=== PATIENT | female | born 1960 | race Caucasian/White ===

== ENCOUNTER 2016-06-17 08:52 | Outpatient (CLI) | payer BC ==
--- NOTE | 2016-06-18 17:24 | Mammography Report ---
DIGITAL SCREENING MAMMOGRAM: 06/17/2016 CLINICAL INDICATION: A 55-year-old with history of benign right breast biopsy for screening. COMPARISON: 06/2015, 06/2014, 05/2013, 07/2011, 12/2009, 11/2008, 09/2007, 08/2006 TECHNIQUE: Routine CC and MLO projections were obtained of the breasts. FINDINGS: Parenchymal tissue within the breasts is predominantly fatty replaced. There are no domina nt masses, suspicious microcalcifications, or secondary signs of malignancy. In comparison to the pre vious studies, there are no significant changes. IMPRESSION: NO MAMMOGRAPHIC EVIDENCE OF MALIGNANCY. NO SIGNIFICANT INTERVAL CHANGES. RECOMMENDATION: Screening mammography is recommended annually. BIRADS category 1 - negative. STANDARD QUALIFYING STATEMENTS 1. This examination was reviewed with the aid of Computed-Aided Detection (CAD). 2. A negative or benign imaging report should not delay biopsy if clinically suspicious findings are present. Consider surgical consultation if warranted. More than 5% of cancers are not identified by i maging. 3. Dense breasts may obscure an underlying neoplasm. JOB #: [id number] EXT JOB #:[id number]
== END 2016-06-17 08:53 | disposition home or self-care (01) ==
LOC: DI 08:52
PROVIDERS: ATTEND Physician Assistant Medical
DX: Z12.31 Encounter for screening mammogram for malignant neoplasm of breast (principal)
CPT/HCPCS: 77067

== ENCOUNTER 2016-06-17 08:56 | Outpatient (CLI) | payer BC ==
--- NOTE | 2016-06-17 15:02 | DEXA Report ---
DEXA SCAN: 06/17/2016 CLINICAL INDICATION: Osteoporosis, long-term prednisone use, postmenopausal. TECHNIQUE: Dual energy x-ray absorptiometry (DXA) was performed on a [employer] system. Regions measured are the AP spine, femoral neck, and, if needed, forearm. COMPARISON: None. In accordance with the International Society for Clinical Densitometry (ISCD) guidelines, data from previous exams may be reanalyzed using current recommendations and techniques. This is done to allow a more accurate basis for comparison with the current study. FINDINGS: The data for the lumbar spine is as follows: REGION BMD (g/cm/cm) T-SCORE Z-SCORE L1 0.944 -1.5 -1.8 L2 0.879 -2.7 -2.9 L3 1.070 -1.1 -1.3 L4 1.022 -1.5 -1.7 TOTAL 0.984 -1.6 -1.9 NOTE: All evaluable vertebrae are used for classification. The data for the hip is as follows: REGION BMD (g/cm/cm) T-SCORE Z-SCORE Neck 0.856 -1.3 -0.9 TOTAL 0.907 -0.8 -0.9 NOTE: The femoral neck or total proximal femur, whichever is lowest, is used for classification. * Denotes significant change at the 95% confidence level. Denotes dissimilar scan types or analysis methods. IMPRESSION: THE WHO CLASSIFICATION BASED ON THE INTERNATIONAL REFERENCE STANDARD IS OSTEOPENIA. THE FRACTURE RISK IS INCREASED. RECOMMENDATION: Patients with diagnosis of osteoporosis or osteopenia should have regular bone mineral density assessment. For those eligible for Medicare, routine testing is allowed once every 2 years. Testing frequency can be increased for patients who have rapidly progressing disease or for those who are receiving medical therapy to restore bone mass. COMMENT: World Health Organization (WHO) definitions for osteoporosis and osteopenia: NORMAL BMD: T-score at -1.0 or higher, fracture risk is low. OSTEOPENIA BMD: T-score between -1.0 and -2.5, fracture risk is increased. OSTEOPOROSIS BMD: T-score at -2.5 or lower, fracture risk high. National Osteoporosis Foundation recommends: 1. Obtain adequate dietary calcium (at least 1200 mg per day) and vitamin D (400 -800 international units per day). 2. Participate, as appropriate, in regular weightbearing and muscle- strengthening exercise. 3. Avoid tobacco use and reduce alcohol and caffeine intake. 4. For more detailed information see the website at www.NOF.org. MTDD
== END 2016-06-17 08:57 | disposition home or self-care (01) ==
LOC: DI 08:56
PROVIDERS: ATTEND Physician Assistant Medical
DX: M85.89 Other specified disorders of bone density and structure, multiple sites (principal)
CPT/HCPCS: 77080

== ENCOUNTER 2016-06-28 08:00 | Outpatient (CLI) | payer BC | END 2016-06-28 08:01 | disposition home or self-care (01) | DX: Z51.81 Encounter for therapeutic drug level monitoring (principal); E78.9 Disorder of lipoprotein metabolism, unspecified; M81.0 Age-related osteoporosis without current pathological fracture; E55.9 Vitamin D deficiency, unspecified ==

== ENCOUNTER 2016-08-17 08:00 | Outpatient (CLI) | payer BC | END 2016-08-17 08:01 | disposition home or self-care (01) | DX: R19.7 Diarrhea, unspecified (principal) ==

== ENCOUNTER 2017-01-05 15:09 | Outpatient (CLI) | payer BC ==
[2017-01-05 12:58] LABS: HEMOGLOBIN A1C 0.54 g/dL
[2017-01-05 13:04] LABS: CHOL/HDL RATIO 4.5 (<4.4); CHOLESTEROL 184 mg/dL; GLUCOSE,FASTING 108 mg/dL (70-100); HDL CHOLESTEROL 41 mg/dL; LDL/HDL RATIO 2.9 (<4.4); TRIGLYCERIDES 123 mg/dL; VLDL CHOLESTEROL 25 mg/dL
== END 2017-01-05 15:10 | disposition home or self-care (01) ==
LOC: LAB.WCP 15:09
PROVIDERS: ATTEND Physician Assistant Medical
DX: E78.9 Disorder of lipoprotein metabolism, unspecified (principal); R73.9 Hyperglycemia, unspecified
CPT/HCPCS: 36415; 80061; 82947; 83036

== ENCOUNTER 2017-04-25 09:10 | Outpatient (CLI) | payer OTHER ==
[2017-04-25 12:52] LABS: BASOPHILS % (AUTO) 0.6 %; EOSINOPHILS # (AUTO) 0.1 10^3/uL (0.0-0.7); EOSINOPHILS % (AUTO) 1.9 %; HGB - HEMOGLOBIN 12.8 g/dL (12.0-16.0); LYMPHOCYTES # (AUTO) 1.6 10^3/uL (1.5-3.5); LYMPHOCYTES % (AUTO) 28.3 %; MEAN CORPUSCULAR HEMOGLOBIN 28.8 pg (27.0-31.0); MEAN CORPUSCULAR HGB CONC 33.9 g/dL (32.0-36.0); MEAN CORPUSCULAR VOLUME 85.1 fL (81.0-99.0); MEAN PLATELET VOLUME 8.8 fL (7.9-10.8); MONOCYTES # (AUTO) 0.3 10^3/uL (0.0-1.0); MONOCYTES % (AUTO) 4.9 %; NEUTROPHILS # (AUTO) 3.6 10^3/uL (1.5-6.6); NEUTROPHILS % (AUTO) 64.3 %; PLT - PLATELET COUNT 188 10^3/uL (130-450); RED BLOOD COUNT 4.44 10^6/uL (4.20-5.40); WHITE BLOOD COUNT 5.6 x10^3/uL (4.8-10.8)
[2017-04-25 13:22] LABS: HB2 TOTAL 13.7 g/dL; HEMOGLOBIN A1C 0.45 g/dL; HEMOGLOBIN A1C % 5.2 % (4.6-6.2)
[2017-04-25 13:47] LABS: ALBUMIN 4.3 g/dL (3.2-5.5); ALBUMIN/GLOBULIN RATIO 1.5 (1.0-2.2); ALKALINE PHOSPHATASE 42 IU/L (42-121); ALT ALANINE AMINOTRANSFERASE 25 IU/L (10-60); AST ASPARTATE AMINOTRANSFERASE 24 IU/L (10-42); BILIRUBIN,TOTAL 0.5 mg/dL (0.2-1.0); BUN - BLOOD UREA NITROGEN 14 mg/dL (6-20); CALCIUM 9.3 mg/dL (8.5-10.3); CARBON DIOXIDE - CO2 28 mmol/L (21-32); CHLORIDE 104 mmol/L (101-111); CHOL/HDL RATIO 4.6 (<4.4); CHOLESTEROL 181 mg/dL; CREATININE 0.9 mg/dL (0.4-1.0); GFR - MDRD 65 (>89); GLUCOSE 98 mg/dL (70-100); HDL CHOLESTEROL 39 mg/dL; LDL CHOLESTEROL,CALCULATED 108 mg/dL; LDL/HDL RATIO 2.8 (<4.4); SODIUM 140 mmol/L (135-145); TOTAL PROTEIN 7.1 g/dL (6.7-8.2); VLDL CHOLESTEROL 34 mg/dL
== END 2017-04-25 09:11 | disposition home or self-care (01) ==
LOC: LAB.WCP 09:10
PROVIDERS: ATTEND Family Medicine
DX: R73.9 Hyperglycemia, unspecified (principal); E78.9 Disorder of lipoprotein metabolism, unspecified; M81.0 Age-related osteoporosis without current pathological fracture; I10 Essential (primary) hypertension
CPT/HCPCS: 36415; 80053; 80061; 83036; 83721; 85025

== ENCOUNTER 2017-06-28 08:00 | Outpatient (CLI) | payer OTHER ==
[2017-06-28 19:33] LABS: ALBUMIN 4.3 g/dL (3.2-5.5); ALBUMIN/GLOBULIN RATIO 1.3 (1.0-2.2); ALKALINE PHOSPHATASE 40 IU/L (42-121); ALT ALANINE AMINOTRANSFERASE 28 IU/L (10-60); AST ASPARTATE AMINOTRANSFERASE 28 IU/L (10-42); BILIRUBIN,TOTAL 0.8 mg/dL (0.2-1.0); BUN - BLOOD UREA NITROGEN 12 mg/dL (6-20); CALCIUM 9.1 mg/dL (8.5-10.3); CARBON DIOXIDE - CO2 29 mmol/L (21-32); CHLORIDE 102 mmol/L (101-111); CHOL/HDL RATIO 4.5 (<4.4); CHOLESTEROL 194 mg/dL; CREATININE 0.9 mg/dL (0.4-1.0); GFR - MDRD 65 (>89); GLUCOSE 89 mg/dL (70-100); HDL CHOLESTEROL 43 mg/dL; LDL CHOLESTEROL,CALCULATED 125 mg/dL; LDL/HDL RATIO 2.9 (<4.4); SODIUM 139 mmol/L (135-145); TOTAL PROTEIN 7.6 g/dL (6.7-8.2); VLDL CHOLESTEROL 26 mg/dL
[2017-06-28 20:16] LABS: HEMOGLOBIN A1C 0.51 g/dL; HEMOGLOBIN A1C % 5.5 % (4.6-6.2)
== END 2017-06-28 08:01 | disposition home or self-care (01) ==
LOC: LAB.WCP 08:00
PROVIDERS: ATTEND Family Medicine
DX: Z00.00 Encounter for general adult medical examination without abnormal findings (principal); I10 Essential (primary) hypertension; E78.5 Hyperlipidemia, unspecified; R73.9 Hyperglycemia, unspecified
CPT/HCPCS: 36415; 80053; 80061; 83036; 83721; 84443

== ENCOUNTER 2018-01-20 10:31 | Outpatient (CLI) | payer OTHER ==
--- NOTE | 2018-01-24 09:08 | Mammography Report ---
Reason: SCREENING MAMMO Procedure Date: 01/20/2018 Accession Number: [id number] / [id number] Procedure: MGN - Screening Mammo Dig Bilat CPT Code: FULL RESULT: EXAM: Screening Mammo Dig Bilat DATE: 01/20/2018 10:49 AM CLINICAL HISTORY: Screening. Family history breast cancer in a maternal aunt, age unknown. History of benign excisional biopsy right breast at age 19. TECHNIQUE: Bilateral CC and MLO views were obtained. COMPARISON: 06/17/2016 through 05/25/2013 FINDINGS: The breasts demonstrate diffuse fatty replacement bilaterally. Bilateral breasts: There are no suspicious masses, calcifications or areas of distortion. IMPRESSION: Negative examination RECOMMENDATION: Routine annual screening unless otherwise clinically indicated. BI-RADS CATEGORY 1: Negative STANDARD QUALIFYING STATEMENTS: 1. This examination was reviewed with the aid of Computer-Aided Detection (CAD). 2. A negative or benign imaging report should not preclude biopsy if clinically suspicious findings are present. 3. Dense breasts may obscure an underlying neoplasm. 4. This examination was reviewed without the aid of 3D breast imaging (tomosynthesis).
== END 2018-01-20 10:32 | disposition home or self-care (01) ==
LOC: DI.N 10:31
DX: Z12.31 Encounter for screening mammogram for malignant neoplasm of breast (principal); Z80.3 Family history of malignant neoplasm of breast
CPT/HCPCS: 77067

== ENCOUNTER 2018-07-13 16:02 | Outpatient (CLI) | payer OTHER ==
--- NOTE | 2018-07-14 06:49 | XRAY Report ---
Reason: PAIN OF STERNUM Procedure Date: 07/13/2018 Accession Number: [id number] / [id number] Procedure: WCP - Chest 1 View X-Ray CPT Code: 25966 FULL RESULT: EXAM: CHEST RADIOGRAPHY EXAM DATE: 07/13/2018 04:17 PM. CLINICAL HISTORY: PAIN OF STERNUM. COMPARISON: None. TECHNIQUE: 1 view. FINDINGS: Lungs/Pleura: Large lung volumes. No alveolar consolidation or pleural effusion seen. No pneumothorax. Mediastinum: Within exam limitations, the cardiomediastinal contour is normal. Other: Old right fifth rib fracture. Surgical clips project over the right apex. IMPRESSION: 1. No acute abnormality seen in the chest. RADIA
== END 2018-07-13 16:03 | disposition home or self-care (01) ==
LOC: DI.WCP 16:02
PROVIDERS: ATTEND Family Medicine
DX: R07.89 Other chest pain (principal)
CPT/HCPCS: 71045

== ENCOUNTER 2018-07-13 16:03 | Outpatient (CLI) | payer OTHER ==
--- NOTE | 2018-07-14 10:40 | XRAY Report ---
Reason: ANKLE PAIN,RIGHT Procedure Date: 07/13/2018 Accession Number: [id number] / [id number] Procedure: WCP - Ankle 3 View RT CPT Code: FULL RESULT: EXAM: RIGHT ANKLE RADIOGRAPHY EXAM DATE: 07/13/2018 04:17 PM. CLINICAL HISTORY: Ankle pain, right. COMPARISON: XR ANKLE COMPLETE MIN 3 VIEW 12/16/2007 5:32 PM. TECHNIQUE: 3 views. FINDINGS: Bones: Interval placement of plate and screw construct along the lateral distal fibula, medial distal tibia and posterior distal tibia most consistent with interval fracture and subsequent operative repair of a trimalleolar fracture pattern. No fracture lines are seen in the distal fibula. Portions of the fracture pattern in the distal tibia are visualized but appear to be well covered by osseous bridging. Inferior calcaneal spurring is noted. A well-demarcated lucency without aggressive features in the calcaneus is nonspecific but often associated with intraosseous lipoma in this location. Joints: The ankle mortise remains symmetric. Soft Tissues: Normal. No soft tissue swelling. IMPRESSION: Interval fracture, operative repair and healing of trimalleolar fracture pattern. RADIA
== END 2018-07-13 16:04 | disposition home or self-care (01) ==
LOC: DI.WCP 16:03
PROVIDERS: ATTEND Family Medicine
DX: S82.851D Displaced trimalleolar fracture of right lower leg, subsequent encounter for closed fracture with routine healing (principal); R07.89 Other chest pain
CPT/HCPCS: 71045

== ENCOUNTER 2018-07-20 13:08 | Outpatient (CLI) | payer OTHER ==
--- NOTE | 2018-07-20 13:58 | CT Report ---
Reason: HEADACHE,CONCUSSION WO LOSS OF CONSCIOUSNESS Procedure Date: 07/20/2018 Accession Number: [id number] / [id number] Procedure: CT - HEAD WO CPT Code: FULL RESULT: EXAM: CT HEAD EXAM DATE: 07/20/2018 01:42 PM. CLINICAL HISTORY: HEADACHE,CONCUSSION WO LOSS OF CONSCIOUSNESS. COMPARISON: None. TECHNIQUE: Multiaxial CT images were obtained from the foramen magnum to the vertex. Reformats: Sagittal and coronal. IV contrast: None. In accordance with CT protocol optimization, one or more of the following dose reduction techniques were utilized for this exam: automated exposure control, adjustment of mA and/or KV based on patient size, or use of iterative reconstructive technique. FINDINGS: Parenchyma: No intraparenchymal hemorrhage. No evidence of mass, midline shift, or CT findings of infarction. Pina-white differentiation is distinct. Extraaxial Spaces: Normal for age. No subdural or epidural collections identified. Ventricles: Normal in size and position. Sinuses and Orbits: Partial imaging of the maxillary sinuses reveals a left maxillary fluid level versus posterior mucosal thickening. Bones: No evidence of fracture or calvarial defect. Other: None. IMPRESSION: 1. Left maxillary sinus findings discussed above. 2. Otherwise negative examination. No acute abnormality. RADIA
== END 2018-07-20 13:09 | disposition home or self-care (01) ==
LOC: DI 13:08
PROVIDERS: ATTEND Family Medicine
DX: S06.0X0A Concussion without loss of consciousness, initial encounter (principal)
CPT/HCPCS: 70450

== ENCOUNTER 2019-04-04 07:00 | Outpatient (CLI) | payer OTHER ==
[2019-04-04 18:34] LABS: BASOPHILS % (AUTO) 0.5 %; EOSINOPHILS # (AUTO) 0.2 10^3/uL (0.0-0.7); EOSINOPHILS % (AUTO) 2.7 %; HGB - HEMOGLOBIN 12.2 g/dL (12.0-16.0); LYMPHOCYTES # (AUTO) 1.6 10^3/uL (1.5-3.5); LYMPHOCYTES % (AUTO) 29.3 %; MEAN CORPUSCULAR HEMOGLOBIN 27.4 pg (27.0-31.0); MEAN CORPUSCULAR HGB CONC 30.3 g/dL (32.0-36.0); MEAN CORPUSCULAR VOLUME 90.1 fL (81.0-99.0); MEAN PLATELET VOLUME 10.8 fL (7.9-10.8); MONOCYTES # (AUTO) 0.3 10^3/uL (0.0-1.0); MONOCYTES % (AUTO) 4.7 %; NEUTROPHILS # (AUTO) 3.5 10^3/uL (1.5-6.6); NEUTROPHILS % (AUTO) 62.8 %; PLT - PLATELET COUNT 188 10^3/uL (130-450); RED BLOOD COUNT 4.46 10^6/uL (4.20-5.40); RED CELL DISTRIBUTION WIDTH 13.4 % (12.0-15.0); WHITE BLOOD COUNT 5.5 x10^3/uL (4.8-10.8)
[2019-04-04 19:04] LABS: HB2 TOTAL 12.7 g/dL; HEMOGLOBIN A1C 0.48 g/dL; HEMOGLOBIN A1C % 5.6 % (4.6-6.2)
[2019-04-04 19:17] LABS: ALBUMIN/GLOBULIN RATIO 1.3 (1.0-2.2); ALKALINE PHOSPHATASE 40 IU/L (42-121); ALT ALANINE AMINOTRANSFERASE 27 IU/L (10-60); AST ASPARTATE AMINOTRANSFERASE 28 IU/L (10-42); BILIRUBIN,TOTAL 0.6 mg/dL (0.2-1.0); BUN - BLOOD UREA NITROGEN 17 mg/dL (6-20); CALCIUM 9.1 mg/dL (8.5-10.3); CARBON DIOXIDE - CO2 28 mmol/L (21-32); CHLORIDE 104 mmol/L (101-111); CHOL/HDL RATIO 3.7 (<4.4); CHOLESTEROL 176 mg/dL; CREATININE 0.8 mg/dL (0.4-1.0); GFR - MDRD 74 (>89); GLUCOSE 105 mg/dL (70-100); HDL CHOLESTEROL 48 mg/dL; LDL CHOLESTEROL,CALCULATED 105 mg/dL; LDL/HDL RATIO 2.2 (<4.4); SODIUM 138 mmol/L (135-145); VLDL CHOLESTEROL 23 mg/dL
== END 2019-04-04 23:59 | disposition home or self-care (01) ==
LOC: LAB.WCP 07:00
PROVIDERS: ATTEND Physician Assistant
DX: Z00.00 Encounter for general adult medical examination without abnormal findings (principal); E55.9 Vitamin D deficiency, unspecified; E78.5 Hyperlipidemia, unspecified; R73.9 Hyperglycemia, unspecified
CPT/HCPCS: 36415; 80053; 80061; 82306; 83036; 83721; 84443; 85025

== ENCOUNTER 2019-10-01 18:33 | Outpatient (CLI) | payer OTHER | END 2019-10-01 23:59 | disposition home or self-care (01) | LOC: LAB.R 18:33 | PROVIDERS: ATTEND Family Medicine | DX: J06.9 Acute upper respiratory infection, unspecified (principal); Z20.828 Contact with and (suspected) exposure to other viral communicable diseases ==

== ENCOUNTER 2020-02-25 10:52 | Outpatient (CLI) | payer OTHER ==
[2020-02-25 13:20] LABS: BASOPHILS % (AUTO) 0.8 %; EOSINOPHILS # (AUTO) 0.2 10^3/uL (0.0-0.7); EOSINOPHILS % (AUTO) 3.2 %; HGB - HEMOGLOBIN 13.2 g/dL (12.0-16.0); LYMPHOCYTES # (AUTO) 1.6 10^3/uL (1.5-3.5); MEAN CORPUSCULAR HEMOGLOBIN 28.3 pg (27.0-31.0); MEAN CORPUSCULAR HGB CONC 31.4 g/dL (32.0-36.0); MEAN CORPUSCULAR VOLUME 89.9 fL (81.0-99.0); MEAN PLATELET VOLUME 10.7 fL (7.9-10.8); MONOCYTES # (AUTO) 0.2 10^3/uL (0.0-1.0); MONOCYTES % (AUTO) 4.5 %; NEUTROPHILS # (AUTO) 2.7 10^3/uL (1.5-6.6); NEUTROPHILS % (AUTO) 57.1 %; PLT - PLATELET COUNT 210 10^3/uL (130-450); RED BLOOD COUNT 4.67 10^6/uL (4.20-5.40); RED CELL DISTRIBUTION WIDTH 13.2 % (12.0-15.0); WHITE BLOOD COUNT 4.7 x10^3/uL (4.8-10.8)
[2020-02-25 14:20] LABS: RHEUMATOID FACTOR NEGATIVE (Negative)
[2020-02-25 14:45] LABS: ALBUMIN 4.2 g/dL (3.2-5.5); ALBUMIN/GLOBULIN RATIO 1.2 (1.0-2.2); ALKALINE PHOSPHATASE 48 IU/L (42-121); ALT ALANINE AMINOTRANSFERASE 31 IU/L (10-60); AST ASPARTATE AMINOTRANSFERASE 28 IU/L (10-42); BILIRUBIN,TOTAL 0.6 mg/dL (0.2-1.0); BUN - BLOOD UREA NITROGEN 18 mg/dL (6-20); CALCIUM 9.6 mg/dL (8.5-10.3); CARBON DIOXIDE - CO2 25 mmol/L (21-32); CHLORIDE 105 mmol/L (101-111); CHOL/HDL RATIO 4.1 (<4.4); CHOLESTEROL 199 mg/dL; CREATININE 0.9 mg/dL (0.4-1.0); CRP - C-REACTIVE PROTEIN < 1.0 mg/dL (0-1.0); GLUCOSE 100 mg/dL (70-100); HDL CHOLESTEROL 48 mg/dL; LDL CHOLESTEROL,CALCULATED 123 mg/dL; LDL/HDL RATIO 2.6 (<4.4); TOTAL PROTEIN 7.6 g/dL (6.7-8.2); VLDL CHOLESTEROL 28 mg/dL
== END 2020-02-25 23:59 | disposition home or self-care (01) ==
LOC: LAB.WCP 10:52
PROVIDERS: ATTEND Physician Assistant
DX: I10 Essential (primary) hypertension (principal); M25.50 Pain in unspecified joint; E78.5 Hyperlipidemia, unspecified
CPT/HCPCS: 36415; 80053; 80061; 83721; 84550; 85025; 85651; 86038; 86140; 86430

== ENCOUNTER 2020-05-28 12:36 | Outpatient (CLI) | payer OTHER | END 2020-05-28 12:37 | disposition home or self-care (01) | LOC: COV 12:36 | PROVIDERS: ATTEND Family Medicine | DX: R50.9 Fever, unspecified (principal); R05 Cough; R07.0 Pain in throat; R09.81 Nasal congestion; Z20.822 Contact with and (suspected) exposure to COVID-19 ==

== ENCOUNTER 2020-11-13 14:44 | Outpatient (CLI) | payer OTHER | END 2020-11-13 14:45 | disposition EMS.NT | LOC: EMS 14:44 | DX: F41.9 Anxiety disorder, unspecified (principal) ==

== ENCOUNTER 2020-11-21 09:52 | Outpatient (CLI) | payer OTHER ==
--- NOTE | 2020-11-24 08:50 | Ultrasound Report ---
LIMITED ULTRASOUND OF RIGHT BREAST: 11/21/2020 CLINICAL: Patient returns today to evaluate a focal asymmetry in the right breast. Occasional right b reast pain. Comparison is made to exams dated: 11/21/2020 mammogram, 01/20/2018 mammogram, 06/17/2016 mammogram, 06/27/2015 mammogram, 06/07/2014 mammogram, and 05/25/2013 mammogram - [facility]. Color flow and real-time ultrasound of the right breast 10 o'clock region were performed. Pina scale images of the real-time examination were reviewed. There is a new 0.6 cm x 0.6 cm x 0.7 cm irregular mass in the right breast at 10 o'clock middle depth 8 cm from the nipple. This irregular mass displays posterior acoustic shadowing. This correlates w ith mammography findings. Color flow imaging demonstrates that there is increased vascularity. IMPRESSION: SUSPICIOUS OF MALIGNANCY The new 0.7 cm irregular mass in the right breast is suspicious of malignancy. An ultrasound guided biopsy is recommended. Findings and recommendations were discussed with the patient in person by Dr. Stephan Downs at time of exam. This exam was interpreted at Station ID: [id number]. Electronically Signed By: Darlin cheung/:11/21/2020 11:20:27 Ultrasound BI-RADS: 4 Suspicious for malignancy BI-RADS CATEGORY: (4) - 4 None [id number] Immediate follow-up LATERALITY: ()
--- NOTE | 2020-11-24 08:50 | Mammography Report ---
BILATERAL DIGITAL DIAGNOSTIC MAMMOGRAM 3D/2D: 11/21/2020 CLINICAL: Occasional right breast pain. Diffuse right breast pain. Comparison is made to exams dated: 01/20/2018 mammogram, 06/17/2016 mammogram, 06/27/2015 mammogram, mammogram, 05/25/2013 mammogram, and 08/02/2011 mammogram - [facility]. The tissue of both breasts is predominantly fatty. There is a new 8 mm irregular high density mass with a spiculated margin in the right breast at 10 o' clock middle depth. This is seen in additional views. No other significant masses, calcifications, or other findings are seen in either breast. IMPRESSION: INCOMPLETE: NEEDS ADDITIONAL IMAGING EVALUATION The 8 mm irregular high density mass in the right breast is new, suspicious but remains indeterminate . An ultrasound is recommended. This was performed immediately following this exam. No abnormalities in the left breast. This exam was interpreted at Station ID: [id number]. NOTE: For mammograms, a report in lay terms will be sent to the patient. Approximately 15% of breast malignancies will not be visualized mammographically. In the management of a palpable breast mass, a negative mammogram must not discourage biopsy of a clinically suspicious lesion. Electronically Signed By: Darlin cheung/:11/21/2020 10:51:23 ACR BI-RADS Category 0: Incomplete 3340F PARENCHYMAL PATTERN: (F) - The breast(s) demonstrate(s) diffuse fatty replacement. BI-RADS CATEGORY: (0) - 0 Ultrasound [id number] Immediate follow-up LATERALITY: (B)
== END 2020-11-21 09:53 | disposition home or self-care (01) ==
LOC: DI 09:52
PROVIDERS: ATTEND Physician Assistant Medical
DX: R92.8 Other abnormal and inconclusive findings on diagnostic imaging of breast (principal)

== ENCOUNTER 2020-11-26 08:47 | Outpatient (CLI) | payer OTHER ==
[~2020-11-26 08:47] MED LIST: BUFFERED LIDOCAINE 10 ML SYRINGE ONE; BUPIVACAINE 0.5% PF 10 ML VIAL ONE
[2020-11-26] MEDS ORDERED: BUFFERED LIDOCAINE 10 ML SYRINGE IU ONE (11:06)
[2020-11-26] MEDS ORDERED: LIDOCAINE 1%-EPI 1:100000 20 ML MDV SUBQ ONE ×2 (11:06→12:00)
--- NOTE | 2020-12-13 11:42 | Ultrasound Report ---
ULTRASOUND GUIDED BIOPSY RIGHT BREAST USING VACUUM DEVICE WITH MARKING DEVICE INSERTED AND POST MAMMO GRAPHIC IMAGIN11/26/2020 CLINICAL: Right breast mass. PATIENT CONSENT: Risks (minor bleeding, infection, vasovagal reaction and repeat procedure), benefits and alternatives were explained to the patient and written informed consent was obtained. Correlation is made to exams dated: 11/21/2020 ultrasound, 11/21/2020 mammogram, 01/20/2018 mammogra m, 06/17/2016 mammogram, 06/27/2015 mammogram, and 06/07/2014 mammogram - [facility]. An ultrasound guided biopsy using real-time ultrasound was performed for the irregular shaped mass lo cated in the right breast at 10 o'clock posterior depth. This was described on the previous ultrasou nd report. The skin was prepped in the usual manner. A biopsy needle was placed adjacent to the abn ormality under ultrasound guidance. Once the needle was documented to be in the correct location, a specimen was obtained using the [employer] biopsy system. A titanium clip was inserted into the biops y cavity. A skin closure strip was applied to the access site. Post procedure mammographic imaging was obtained. The specimen was sent to the laboratory for pathological analysis. IMPRESSION: ULTRASOUND GUIDED BIOPSY MALIGNANT Ultrasound guided biopsy of the mass in the right breast at 10 o'clock posterior depth was successful . Pathology indicates malignant invasive ductal carcinoma with lobular pattern of invasion and ductal c arcinoma in situ. Pathology results are concordant with imaging findings. A surgical/oncologic consultation is recommended. This exam was interpreted at Station ID: [id number]. Dr Chet Renner M.D. fs,ar/:12/01/2020 09:30:49 BI-RADS CATEGORY: () - Unspecified - other recall n/a LATERALITY: (B)
--- NOTE | 2020-12-13 11:46 | Mammography Report ---
UNILATERAL RIGHT DIGITAL DIAGNOSTIC MAMMOGRAM 3D/2D: 11/26/2020 CLINICAL: Post right breast ultrasound biopsy clip placement imaging. Comparison is made to exams dated: 11/21/2020 ultrasound, 11/21/2020 mammogram, 01/20/2018 mammogram , 06/17/2016 mammogram, 06/27/2015 mammogram, and 06/07/2014 mammogram - [facility] with [facility]. T he tissue of right breast is predominantly fatty. Postbiopsy mammographic images demonstrate a clip adjacent to the biopsied mass of clinical concern. This correlates with ultrasound findings. No other significant masses or calcifications are seen in the breast. IMPRESSION: INCOMPLETE: NEEDS ADDITIONAL IMAGING EVALUATION Postbiopsy mammographic images as above. Pathology pending. This exam was interpreted at Station ID: [id number]. NOTE: For mammograms, a report in lay terms will be sent to the patient. Approximately 15% of breast malignancies will not be visualized mammographically. In the management of a palpable breast mass, a negative mammogram must not discourage biopsy of a clinically suspicious lesion. Electronically Signed By: Dr Chet Jason MD fs/:11/26/2020 16:46:37 ACR BI-RADS Category 0: Incomplete 3340F PARENCHYMAL PATTERN: (F) - The breast(s) demonstrate(s) diffuse fatty replacement. BI-RADS CATEGORY: (0) - 0 Unspecified - other recall n/a LATERALITY: (B)
== END 2020-11-26 08:48 | disposition home or self-care (01) ==
LOC: DI 08:47
PROVIDERS: ATTEND Physician Assistant Medical
DX: C50.411 Malignant neoplasm of upper-outer quadrant of right female breast (principal); Z17.0 Estrogen receptor positive status [ER+]
CPT/HCPCS: 19083

== ENCOUNTER 2021-01-06 08:28 | Outpatient (CLI) | payer OTHER ==
--- NOTE | 2021-01-06 09:27 | DEXA Report ---
PROCEDURE: Dexa Spine and/or Hip INDICATIONS: POST MENOPAUSAL TECHNIQUE: Dual energy x-ray absorptiometry (DXA) was performed on a [employer] System. Regions measur ed are the AP Spine, femoral neck, and if needed forearm. COMPARISON: 12/20/2018 FINDINGS: Lumbar Spine: Bone Mineral Density 1.028 g/cm/cm,T score -1.3, osteopenia Left Hip: Bone Mineral Density 0.934 g/cm/cm,T score -0.6, normal bone mineral density Left Femoral Neck: Bone Mineral Density 0.898 g/cm/cm, T score -1.0, normal bone mineral density (T score greater or equal to -1.0: NORMAL) (T score from -1.1 to -2.4: OSTEOPENIA) (T score less than or equal to -2.5 to: OSTEOPOROSIS) Impression: OSTEOPENIA. Patient is at increased risk for fracture. Patients with diagnosis of osteoporosis or osteopenia should have regular bone mineral density assess ment. For those eligible for Medicare, routine testing is allowed once every 2 years. Testing frequ ency can be increased for patients who have rapidly progressing disease or for those who are receivin g medical therapy to restore bone mass. Reviewed by: Mohit Goldberg MD on 01/06/2021 9:26 AM PST Approved by: Mohit Goldberg MD on 01/06/2021 9:26 AM PST Station ID: [id number]
== END 2021-01-06 08:29 | disposition home or self-care (01) ==
LOC: DI 08:28
PROVIDERS: ATTEND Physician Assistant Medical
DX: Z78.0 Asymptomatic menopausal state (principal); M85.88 Other specified disorders of bone density and structure, other site

== ENCOUNTER 2021-02-27 08:01 | Day surgery (SDC) | payer OTHER ==
[2021-02-27] MEDS ORDERED: LACTATED RINGERS 1,000 ML IV ONE ×2 (09:00→15:25)
[2021-02-27] MEDS: SCOPOLAMINE PATCH TOP SCH ×2 (09:09→16:07)
[2021-02-27] MEDS ORDERED: CEFAZOLIN SODIUM IN 0.9 % NACL 2 GM/100 ML BAG IV ONE (09:09)
--- NOTE | 2021-02-27 09:15 | ANESTHESIA ---
Pre-Anesthesia VS, & Labs - Diagnosis right breast cancer - Procedure bilateral skin sparing mastectomy Vital Signs: Temp Pulse Resp BP Pulse Ox 36.3 C L 99 18 179/88 H 97 02/27/21 08:21 02/27/21 08:21 02/27/21 08:21 02/27/21 08:21 02/27/21 08:21 Height: 5 ft 6 in Weight (kg): 93.7 kg Body Mass Index: 33.3 BMI Classification: Obese - NPO >8 hours - Is Patient ?: No - Lab Results Lab results reviewed: Yes Home Medications and Allergies Active Medications Scopolamine HBr (Scopolamine Patch) 1 patch TOP Q3D NEDRA Last Admin: 02/27/21 09:09 Dose: 1 patch Atorvastatin Calcium [Lipitor] 10 mg ORAL DAILY 04/16/14 Nortriptyline [Pamelor] 50 mg ORAL DAILY 04/16/14 Omeprazole [Prilosec] 20 mg ORAL DAILY 04/16/14 Oxybutynin [Ditropan] 5 mg ORAL DAILY 04/16/14 Gabapentin [Neurontin] 600 mg PO TID 01/02/15 Vit,Calc76/Iron/Folic [Prenatabs Rx Tablet] 1 each PO DAILY 01/02/15 methocarbamoL [Robaxin-750] 750 mg PO Q6HR PRN 01/02/15 Cholecalciferol (Vitamin D3) [Vitamin D3] 5,000 unit PO DAILY 04/27/17 Meloxicam 15 mg PO DAILY 04/27/17 lisinopriL [Lisinopril] 20 mg PO DAILY 04/27/17 Buspirone HCl 1 tab PO QID 12/30/20 Famotidine [Pepcid] 1 tab PO DAILY 12/30/20 Allergies/Adverse Reactions: Allergies Allergy/AdvReac Type Severity Reaction Status Date / Time latex AdvReac Rash Verified 12/30/20 15:58 Anes History & Medical History - Anesthetic History Anesthesia Complications: reports: Post-Operative Nausea/Vomiting Family history of Anesthesia Complications: Denies Family history of Malignant Hyperthermia: Denies - Medical History Cardiovascular: reports: Hypertension, High cholesterol Pulmonary: reports: None, Other Gastrointestinal: reports: GERD, Ulcers, Colon polyps, Diverticulitis, Ulcerative colitis Urinary: reports: None Musculoskeletal: reports: Osteoarthritis, Osteopenia, Chronic back pain Endocrine/Autoimmune: reports: None Skin: reports: None, Psoriasis Smoking Status: Former smoker Psychosocial: reports: Anxiety - Surgical History General: reports: Appendectomy, Colonoscopy Gynecologic: reports: Hysterectomy, Other Orthopedic: reports: Other Exam General: Alert, Oriented x3, Cooperative, No acute distress Dental: WNL Mouth Openin Fingerbreadth Neck Mobility: Normal Mallampati classification: II Plan Anesthesia Type: General Consent for Procedure(s) Verified and Reviewed: Yes Code Status: Attempt Resuscitation ASA classification: 2-Mild systemic disease Is this case an emergency?: No
[2021-02-27] MEDS ORDERED: fentaNYL 100 MCG/2 ML VIAL ONE ×3 (09:38→14:18)
[2021-02-27] MEDS ORDERED: SUGAMMADEX 200 MG/2 ML VIAL IVP ONE (09:38)
[2021-02-27] MEDS ORDERED: PROPOFOL 200 MG/20 ML VIAL IVP ONE ×2 (09:38→14:52)
[2021-02-27] MEDS ORDERED: LIDOCAINE-MPF 2% 5 ML VIAL ONE (09:38)
[2021-02-27] MEDS ORDERED: MIDAZOLAM 2 MG/2 ML VIAL ONE (09:38)
[2021-02-27] MEDS ORDERED: ROCURONIUM 50 MG/5 ML VIAL ONE ×2 (09:39→12:54)
[2021-02-27] MEDS ORDERED: diphenhydrAMINE INJ 50 MG/ML VIAL ONE (09:39)
[2021-02-27] MEDS ORDERED: DEXAMETHASONE 4 MG/ML VIAL ONE (09:39)
[2021-02-27] MEDS ORDERED: ONDANSETRON 4 MG/2 ML VIAL ONE (09:39)
[2021-02-27] MEDS ORDERED: BUPIVACAINE 0.5% PF 10 ML VIAL ONE ×2 (10:13)
[2021-02-27] MEDS ORDERED: LIDOCAINE 2%-EPI 1:100000 20 ML MDV ONE ×2 (10:13)
[2021-02-27] MEDS ORDERED: HYDROmorphone 1 MG/ML CARPUJECT ONE (11:35)
--- NOTE | 2021-02-27 11:38 | Nuclear Medicine Report ---
PROCEDURE: Lymph Node Scintigraphy INDICATIONS: RIGHT BREAST CANCER RADIOPHARMACEUTICAL: 0.5-1.0 mCi Millipore filtered Tc-99m sulfur colloid. TECHNIQUE: The area around the nipple was prepped and draped in a sterile fashion. Tc-99m sulfur colloid was in jected intra-dermally in the outer edge of the areola in the right breast. Images were obtained subs equently. A body contour outline was obtained. FINDINGS: There is slightly increased uptake within the ipsilateral right internal mammary lymph nodes. No defi nite increased uptake in the ipsilateral axilla. IMPRESSION: 1. Administration of radiotracer into the right breast periareolar region for intra-operative sentine l lymph node localization. 2. Mildly increased uptake within ipsilateral right internal mammary lymph nodes. Reviewed by: Filipe Soni MD on 02/27/2021 11:37 AM PST Approved by: Filipe Soni MD on 02/27/2021 11:37 AM PST Station ID: [id number]
[2021-02-27] MEDS ORDERED: LIDOCAINE 2%-EPI 1:100000 20 ML MDV SUBQ ONE ×2 (12:16)
[2021-02-27] MEDS ORDERED: BUPIVACAINE 0.5% PF 10 ML VIAL SUBQ ONE (12:16)
[2021-02-27] MEDS ORDERED: BUPIVACAINE 0.5% PF 10 ML VIAL IM ONE (12:16)
[2021-02-27] MEDS ORDERED: METOCLOPRAMIDE 10 MG/2 ML VIAL IVP PRN (13:38)
[2021-02-27] MEDS ORDERED: ATROPINE ABBOJECT 1 MG/10 ML SYRINGE IVP PRN (13:38)
[2021-02-27] MEDS ORDERED: NALOXONE 0.4 MG/ML VIAL IVP PRN (13:38)
[2021-02-27] MEDS ORDERED: MORPHINE 2 MG/ML CARPUJECT IVP PRN (13:38)
[2021-02-27] MEDS ORDERED: ePHEDrine 50 MG/ML VIAL IVP PRN (13:38)
[2021-02-27] MEDS ORDERED: ONDANSETRON 4 MG/2 ML VIAL IVP PRN ×2 (13:38→15:31)
[2021-02-27] MEDS ORDERED: fentaNYL 100 MCG/2 ML VIAL IVP PRN (13:38)
[2021-02-27] MEDS ORDERED: LACTATED RINGERS 1,000 ML IV SCH (14:00)
[2021-02-27] MEDS ORDERED: ACETAMINOPHEN 1,000 MG/100 ML 100 ML IV ONE (14:21)
[2021-02-27] MEDS ORDERED: SODIUM CHLORIDE FLUSH 0.9% 10 ML SYRINGE IVP PRN (15:19)
[2021-02-27] MEDS: HYDROmorphone 0.5 MG/0.5 ML SYRINGE IVP PRN ×4 (15:24→21:11)
[2021-02-27] MEDS ORDERED: LORazepam 2 MG/ML VIAL IVP PRN (15:31)
--- NOTE | 2021-02-27 15:42 | OPERATIVE REPORT ---
Operative Report - General Procedure Date: 02/27/21 Planned Procedure: Bilateral mastectomy with right sentinel node dissection Pre-Op Diagnosis: Biopsy-proven right breast cancer Procedure Performed: Bilateral mastectomy with right sentinel node dissection Post Op Diagnosis: Biopsy-proven right breast cancer - Procedure Note Primary Surgeon: Ruperto Anesthesia Provider: JOSÉ MIGUEL Owens Anesthesia Technique: General LMA Pathology: 1. left breast 2. right breast 3. right sentinel node with 10 sec count [id number], background in axilla 23, background in room 0 Estimated Blood Loss (mL): 100 Findings: 1. Normal appearing sentinel node 2. Well vascularized breast tissue Complications: None apparent - Other Other Information/Narrative: After obtaining informed consent, the patient is brought to the operating room and placed in the supine position on the operating table. Following successful induction of general endotracheal anesthesia, appropriate padding of all bony prominences, and placement of appropriate monitors, the right chest and axilla were prepped and draped in the standard surgical fashion. A timeout was held per scope protocol. All elements of the surgical safety checklist were followed before, during, and after the procedure. We began the procedure on the left, unaffected breast. Half percent Marcaine plain mixed with 2% lidocaine with epinephrine was infiltrated throughout the subcutaneous tissue of the breast and beneath the pectoralis major and minor muscles As well as portions of the serratus anterior. This was to done to provide a field block. An incision was fashioned elliptically. Measurements were made and incisions designed to create as nearly identical scars as possible. This left breast incision was then completed with a 10 blade scalpel. It was carried through the skin and subcutaneous tissue. Traction and countertraction were then used to divide the underlying breast tissue from the overlying dermis from the level of the incision to the clavicle superiorly medially to the sternum inferiorly to the inframammary fold and lateral to the posterior axillary line. Once a circumferential dissection had been obtained, the breast was removed in a medial to lateral fashion. All perforators were addressed with sutures or with cautery prior to division. The breast was then marked with a short stitch superior and a long stitch lateral. The wound was irrigated with warm water and aspirated free of all fluid and particulate matter. It was checked once again for hemostasis and touched up in just a couple of places with cautery. A 19 [place] Carrington drain was placed in the inframammary pocket and brought out inferior medially. It was sewn into place. The skin edges were then closed in an interrupted fashion with Vicryl suture and the monocryl sutures used to approximate the skin. The incision was treated with Dermabond and allowed to dry completely. The wound was covered and we turned our attention to the right side. The site of the brightest node had been marked in radiology with 2 skin marker axis. The neoprobe was used to identify the site of greatest uptake at level 2 in the patient's axilla. An incision was created directly over the site where the neoprobe indicated the hottest node. Dissection was carried to the pectoralis mucsle and the node packet identified. The sentinel node was easily identified. It was grossly normal in appearance and size. It was carefully dissected free from surrounding structures sharply, all lymphatics and vasculature were addressed with clips prior to division. The node was liberated into the field. 10-second counts are recorded. Survey of the axilla revealed a background count of 23 and no additional targets for dssection. The axilla was examined for hemostasis. It was irrigated with warm water and aspirated free of fluid and particulate matter. Background in the room was 0. The skin edges were then closed in an interrupted fashion with Vicryl suture and the monocryl sutures used to approximate the skin. The incision was treated with Dermabond and allowed to dry completely. We now turned our attention to the completion of the right breast mastectomy. Again we began the procedure by infiltrating half percent Marcaine plain throughout the subcutaneous tissue of the breast and beneath the pectoralis major and minor muscles as well as portions of the serratus anterior. This incision was then completed with a 10 blade scalpel. It was carried through the skin and subcutaneous tissue. Traction and countertraction were then used to divide the underlying breast tissue from the overlying dermis from the level of the incision to the clavicle superiorly medially to the sternum inferiorly to the inframammary fold and lateral to the posterior axillary line. Once a circumferential dissection had been obtained, the breast was removed in a medial to lateral fashion. All perforators were addressed with sutures or with cautery prior to division. The breast was then marked with a short stitch superior and a long stitch lateral. The wound was irrigated with warm water and aspirated free of all fluid and particulate matter. It was checked once again for hemostasis. .A 19 [place] Carrington drain was placed in the inframammary pocket and brought out inferior medially. It was sewn into place. The skin edges were then closed in an interrupted fashion with Vicryl suture and the monocryl sutures used to approximate the skin. The incision was treated with Dermabond and allowed to dry completely. Once the Dermabond was dry, Jaci wound m anaging devices were applied to both sides. Good seals were obtained. All sponge, needle, and instrument counts were correct at the conclusion of the case. The patient was allowed to wake from anesthesia without difficulty and taken to the postanesthesia care unit in good condition.
[2021-02-27] MEDS ORDERED: methocarbamoL 500 MG TABLET PO PRN (16:01)
[2021-02-27] MEDS: KETOROLAC 30 MG/ML VIAL IVP SCH ×2 (16:26→22:00)
[2021-02-27] MEDS: SODIUM CHLORIDE 0.9% 1,000 ML IV SCH (16:27)
[2021-02-27] MEDS: SODIUM CHLORIDE FLUSH 0.9% 10 ML SYRINGE IVP SCH (17:03)
[2021-02-27] MEDS: busPIRone 5 MG TABLET PO SCH ×2 (17:03→21:24)
--- NOTE | 2021-02-27 17:59 | ANESTHESIA POST OP EVALUATION ---
Anesthesia Post Eval - Post Anesthesia Eval Vitals: Last Vital Signs Temp 36.3 C L 02/27/21 16:00 Pulse 82 02/27/21 16:00 Resp 18 02/27/21 16:00 BP 120/59 L 02/27/21 16:00 Pulse Ox 94 02/27/21 16:00 CV Function Including HR & BP: Stable Pain Control: Satisfactory Nausea & Vomiting: Negative Mental Status: Baseline Respiratory Status: Airway Patent Hydration Status: Satisfactory Anesthesia Complications: None
[2021-02-27] MEDS: ceFAZolin 2 GM in SODIUM CHLORIDE 0.9% 100ML 100 ML IV SCH (18:32)
[2021-02-27] MEDS: oxyCODONE 5 MG TABLET PO PRN (19:53)
[2021-02-27] MEDS ORDERED: NORTRIPTYLINE 25 MG CAPSULE PO SCH (21:00)
[2021-02-27] MEDS ORDERED: ATORVASTATIN 10 MG TABLET PO SCH (21:00)
[2021-02-27] MEDS: ACETAMINOPHEN 1,000 MG/100 ML 100 ML IV SCH (21:12)
[2021-02-27] MEDS: GABAPENTIN 300 MG CAPSULE PO SCH (22:00)
[2021-02-28] MEDS: oxyCODONE 5 MG TABLET PO PRN ×3 (00:41→11:30)
[2021-02-28] MEDS: SODIUM CHLORIDE FLUSH 0.9% 10 ML SYRINGE IVP SCH ×3 (00:45→03:59)
[2021-02-28] MEDS: ACETAMINOPHEN 1,000 MG/100 ML 100 ML IV SCH ×3 (02:50→14:04)
[2021-02-28] MEDS: SODIUM CHLORIDE 0.9% 1,000 ML IV SCH (03:01)
[2021-02-28] MEDS ORDERED: SODIUM CHLORIDE 0.9% 100ML 0 ML IV ONE (03:03)
[2021-02-28] MEDS: ceFAZolin 2 GM in SODIUM CHLORIDE 0.9% 100ML 100 ML IV SCH (03:06)
[2021-02-28] MEDS: HYDROmorphone 0.5 MG/0.5 ML SYRINGE IVP PRN ×3 (03:18→13:51)
[2021-02-28] MEDS: KETOROLAC 30 MG/ML VIAL IVP SCH ×2 (03:59→09:41)
[2021-02-28] MEDS: GABAPENTIN 300 MG CAPSULE PO SCH ×2 (06:10→13:50)
[2021-02-28] MEDS ORDERED: PANTOPRAZOLE 40 MG TABLET PO SCH (07:00)
--- NOTE | 2021-02-28 08:20 | PHARMACY PROGRESS NOTE ---
- Best Possible Medication History Admit Date and Time: Processed by: Nursing Medication History completed: Yes Patient Interview: Completed Secondary Source(s): Pharmacy records, Insurance records As the person ultimately responsible for medication therapy, providers are able to order a medication from an existing home medication list in [facility] via the "Reconcile Routine" prior to Confirmation of that medication by business support coordinator. Such practice is discouraged except when the physician, in their clinical judgment, deems that a medical need exists for a medication without regard to previous use.
[2021-02-28] MEDS ORDERED: lisinopriL 20 MG TABLET PO SCH (09:00)
[2021-02-28] MEDS ORDERED: OXYBUTYNIN 5MG TABLET PO SCH (09:00)
[2021-02-28] MEDS ORDERED: DOCUSATE SODIUM 250 MG CAPSULE PO SCH (09:00)
[2021-02-28] MEDS: busPIRone 5 MG TABLET PO SCH ×2 (09:41→13:50)
--- NOTE | 2021-02-28 12:36 | Discharge Plan ---
Discharge Plan Problem Reviewed?: Yes Disposition: Home, Self Care Condition: Good Prescriptions: oxyCODONE/ACET 5/325 [Percocet 5 mg/325 mg] 1 each PO Q4-6H PRN #35 tablet PRN Reason: Pain Alprazolam [Xanax] 0.5 mg PO BID PRN #30 tablet PRN Reason: Anxiety Diet: Regular Activity Restrictions: No Restrictions Shower Restrictions: Yes (keep incision areas dry for a couple days) Driving Restrictions: Yes (no driving while taking prescription pain pills) Plan of Treatment: surgery for breast cancer follow up in the office this coming week call with any concerns [phone] Assessment: doing well after surgery No Smoking: If you smoke, Please STOP! Call for help. Follow-up with: Alexsu Chapin PA-C [Primary Care Provider] -
--- NOTE | 2021-02-28 12:39 | DISCHARGE SUMMARY ---
"Discharge Summary Admit Date: 02/27/21 Discharge Date: 02/28/21 Discharging Provider: darren carlton Code Status: Attempt Resuscitation Discharge Facility Name: [facility] - DIAGNOSES Admission Diagnoses: right breast cancer Discharge Diagnoses with Status of Each Condition: home in good condition after bilateral mastectomy and right sentinel node - HPI History of Present Illness: as above - CONSULTS | PROCEDURES Procedures: as above - HOSPITAL COURSE Hospital Course: doing well post op day 1. d/c home pod 1 - ALLERGIES Allergies/Adverse Reactions: Allergies Allergy/AdvReac Type Severity Reaction Status Date / Time latex AdvReac Rash Verified 12/30/20 15:58 - MEDICATIONS Home Medications: Ambulatory Orders Medication Instructions Recorded Confirmed Atorvastatin Calcium [Lipitor] 10 mg ORAL DAILY 04/16/14 02/12/21 Nortriptyline [Pamelor] 50 mg ORAL DAILY 04/16/14 02/12/21 Omeprazole [Prilosec] 20 mg ORAL DAILY 04/16/14 02/12/21 Oxybutynin [Ditropan] 5 mg ORAL DAILY 04/16/14 02/12/21 Gabapentin [Neurontin] 600 mg PO TID 01/02/15 02/27/21 Vit,Calc76/Iron/Folic 1 each PO DAILY 01/02/15 02/12/21 [Prenatabs Rx Tablet] methocarbamoL [Robaxin-750] 750 mg PO Q6HR PRN 01/02/15 02/27/21 Cholecalciferol (Vitamin D3) 5,000 unit PO DAILY 04/27/17 02/27/21 [Vitamin D3] Meloxicam 15 mg PO DAILY 04/27/17 02/12/21 lisinopriL [Lisinopril] 20 mg PO DAILY 04/27/17 02/12/21 Buspirone HCl 1 tab PO QID 12/30/20 02/27/21 Famotidine [Pepcid] 1 tab PO DAILY 12/30/20 02/12/21 Alprazolam [Xanax] 0.5 mg PO BID PRN #30 tablet 02/20/21 oxyCODONE/ACET 5/325 [Percocet 5 1 each PO Q4-6H PRN #35 tablet 02/28/21 mg/325 mg] - PHYSICAL EXAM AT DISCHARGE General Appearance: positive: No acute distress, Alert Eyes Bilateral: positive: PERRL, EOMI ENT: positive: No signs of dehydration Neck: positive: No JVD Respiratory: positive: No respiratory distress Abdomen: positive: Non-tender, No distention Neurologic/Psychiatric: positive: Oriented x3 Physical Exam Other/Comments: dressings c/d/i - FOLLOW UP Follow Up: Dr Hickey surgery office [phone]"
[2021-02-28 14:04] VITALS: BP 116/59
== END 2021-02-28 14:29 | disposition home or self-care (01) ==
LOC: DI 08:01 → MS3 15:24 → DI 02-28 14:29
PROVIDERS: ATTEND Surgery
PROC: 07B50ZX Excision of Right Axillary Lymphatic, Open Approach, Diagnostic (ICD-10-PCS; 2021-02-27)
PROC: 0HTV0ZZ Resection of Bilateral Breast, Open Approach (ICD-10-PCS; principal; 2021-02-27 10:15)
DX: C50.411 Malignant neoplasm of upper-outer quadrant of right female breast (principal); C77.3 Secondary and unspecified malignant neoplasm of axilla and upper limb lymph nodes; Z17.0 Estrogen receptor positive status [ER+]; E66.9 Obesity, unspecified; Z68.33 Body mass index [BMI] 33.0-33.9, adult; Z87.891 Personal history of nicotine dependence; F41.9 Anxiety disorder, unspecified; I10 Essential (primary) hypertension
CPT/HCPCS: 19303; 38525; 78195; A9270; J0131; J0690; J1170; J1200; J3490; J7120

== ENCOUNTER 2021-03-24 07:28 | Day surgery (SDC) | payer OTHER ==
[~2021-03-24 07:28] MED LIST changes: -BUFFERED LIDOCAINE 10 ML SYRINGE ONE; +LIDOCAINE MPF 2%-EPI 1:200000 20 ML VIAL ONE
[2021-03-24] MEDS ORDERED: LIDOCAINE MPF 2%-EPI 1:200000 10 ML VIAL SUBQ ONE (07:50)
[2021-03-24] MEDS ORDERED: BUPIVACAINE 0.5% PF 10 ML VIAL SUBQ ONE ×3 (07:51→09:36)
[2021-03-24] MEDS ORDERED: LACTATED RINGERS 1,000 ML IV ONE (07:52)
[2021-03-24] MEDS ORDERED: ALPRAZolam 0.25 MG TABLET PO ONE ×2 (08:09→08:29)
--- NOTE | 2021-03-24 08:10 | ANESTHESIA ---
Pre-Anesthesia VS, & Labs - Diagnosis partial skin necrosis, mastectomy wound - Procedure wound debridement and closure Vital Signs: Temp Pulse Resp BP Pulse Ox 37.1 C 98 16 147/71 H 97 03/24/21 07:36 03/24/21 07:36 03/24/21 07:36 03/24/21 07:36 03/24/21 07:36 Height: 5 ft 6 in Weight (kg): 88.4 kg Body Mass Index: 31.4 BMI Classification: Obese - NPO >8 hours - Is Patient ?: No Home Medications and Allergies Home Medications: Ambulatory Orders Ondansetron HCl 4 mg PO Q4HR PRN 03/20/21 levoFLOXacin [Levofloxacin] 500 mg PO DAILY 03/20/21 Atorvastatin Calcium [Lipitor] 10 mg ORAL DAILY 04/16/14 Nortriptyline [Pamelor] 50 mg ORAL DAILY 04/16/14 Omeprazole [Prilosec] 20 mg ORAL DAILY 04/16/14 Oxybutynin [Ditropan] 5 mg ORAL DAILY 04/16/14 Gabapentin [Neurontin] 600 mg PO TID 01/02/15 Vit,Calc76/Iron/Folic [Prenatabs Rx Tablet] 1 each PO DAILY 01/02/15 methocarbamoL [Robaxin-750] 750 mg PO Q6HR PRN 01/02/15 Cholecalciferol (Vitamin D3) [Vitamin D3] 5,000 unit PO DAILY 04/27/17 Meloxicam 15 mg PO DAILY 04/27/17 lisinopriL [Lisinopril] 20 mg PO DAILY 04/27/17 Buspirone HCl 1 tab PO QID 12/30/20 Famotidine [Pepcid] 1 tab PO DAILY 12/30/20 Ondansetron HCl 4 mg PO Q4HR PRN 03/20/21 levoFLOXacin [Levofloxacin] 500 mg PO DAILY 03/20/21 Allergies/Adverse Reactions: Allergies Allergy/AdvReac Type Severity Reaction Status Date / Time latex AdvReac Rash Verified 03/24/21 06:56 Anes History & Medical History - Anesthetic History Anesthesia Complications: reports: No previous complications - Medical History Cardiovascular: reports: Hypertension, High cholesterol Pulmonary: reports: None Gastrointestinal: reports: GERD, Ulcers, Colon polyps, Diverticulitis, Ulcerative colitis Urinary: reports: None Neuro: reports: None Musculoskeletal: reports: Osteoarthritis, Osteopenia, Chronic back pain Endocrine/Autoimmune: reports: None Blood Disorders: reports: None Skin: reports: Psoriasis Smoking Status: Former smoker Psychosocial: reports: Anxiety - Surgical History General: reports: Appendectomy, Colonoscopy Gynecologic: reports: Hysterectomy, Other Orthopedic: reports: Other Exam General: Alert, Oriented x3, Cooperative, No acute distress Dental: WNL Mouth Openin Fingerbreadth Neck Mobility: Normal Mallampati classification: I Thyromental Distance: 4-6 cm Respiratory: Lungs clear, Normal breath sounds, No respiratory distress, No accessory muscle use Cardiovascular: Regular rate, Normal S1, Normal S2, No murmurs Mental/Cognitive Status: Alert/Oriented X3, Normal for patient Plan Anesthesia Type: General Consent for Procedure(s) Verified and Reviewed: Yes Code Status: Attempt Resuscitation ASA classification: 3-Severe systemic disease Is this case an emergency?: No
[2021-03-24] MEDS ORDERED: NALOXONE 0.4 MG/ML VIAL IVP PRN (08:14)
[2021-03-24] MEDS ORDERED: MORPHINE 2 MG/ML CARPUJECT IVP PRN (08:14)
[2021-03-24] MEDS ORDERED: ONDANSETRON 4 MG/2 ML VIAL IVP PRN ×2 (08:14→09:50)
[2021-03-24] MEDS ORDERED: ATROPINE ABBOJECT 1 MG/10 ML SYRINGE IVP PRN (08:14)
[2021-03-24] MEDS ORDERED: HYDROmorphone 0.5 MG/0.5 ML SYRINGE IVP PRN (08:14)
[2021-03-24] MEDS ORDERED: fentaNYL 100 MCG/2 ML VIAL IVP PRN (08:14)
[2021-03-24] MEDS ORDERED: MIDAZOLAM 2 MG/2 ML VIAL ONE (08:23)
[2021-03-24] MEDS ORDERED: DEXAMETHASONE 4 MG/ML VIAL ONE (08:23)
[2021-03-24] MEDS ORDERED: PROPOFOL 200 MG/20 ML VIAL IVP ONE ×2 (08:23→09:48)
[2021-03-24] MEDS ORDERED: fentaNYL 100 MCG/2 ML VIAL ONE ×2 (08:23→09:38)
[2021-03-24] MEDS ORDERED: ONDANSETRON 4 MG/2 ML VIAL ONE (08:23)
[2021-03-24] MEDS ORDERED: LIDOCAINE-MPF 2% 5 ML VIAL ONE (08:24)
[2021-03-24] MEDS ORDERED: diphenhydrAMINE INJ 50 MG/ML VIAL ONE (08:24)
[2021-03-24] MEDS ORDERED: ALPRAZolam 0.25 MG TABLET PO SCH (09:00)
[2021-03-24] MEDS ORDERED: SCOPOLAMINE PATCH TOP SCH (09:00)
[2021-03-24] MEDS ORDERED: LACTATED RINGERS 1,000 ML IV SCH (09:00)
[2021-03-24] MEDS ORDERED: LIDOCAINE MPF 2%-EPI 1:200000 20 ML VIAL SUBQ ONE ×2 (09:11→09:36)
--- NOTE | 2021-03-24 09:49 | OPERATIVE REPORT ---
Operative Report - General Procedure Date: 03/24/21 Planned Procedure: Bilateral mastectomy wound debridement and closure Pre-Op Diagnosis: Tissue loss following bilateral mastectomy Procedure Performed: Bilateral mastectomy wound debridement and closure Post Op Diagnosis: Tissue loss following bilateral mastectomy - Procedure Note Primary Surgeon: Ruperto Anesthesia Provider: JOSÉ MIGUEL Owens Anesthesia Technique: General LMA Pathology: None Estimated Blood Loss (mL): 10 Findings: Full-thickness necrosis of the skin edges approximately 1 cm circumferentially around each mastectomy incision. Complications: None apparent - Other Other Information/Narrative: After obtaining informed consent, the patient is brought to the operating room and placed in the supine position on the operating table. Following successful induction of general anesthesia, appropriate padding of all bony prominences, and placement appropriate monitors, bilateral chest were prepped and draped in the standard surgical fashion. A timeout was held per scope protocol. All elements of the surgical safety checklist were followed before, during, and after the procedure. We began the procedure on the left side. The devitalized tissue is very well demarcated. This tissue was debrided sharply. A full-thickness 9 x 3 cm segment was removed and the underlying tissue was noted to be granulating and he aling well. There was an island of tissue that was suspicious in the superior medial area but the eschar was removed to reveal some granulation beneath.The wound edges were then undermined to prevent rolling and the wound was irrigated with Betadine and saline solution. The wound was then closed with vertical mattress sutures followed by an over and over baseball stitch. We turned our attention to the right side. We noted again a full-thickness area of about 9 x 3 cm encompassing about a centimeter to a centimeter and half in all directions around the incision. There was also an island superiorly approximately 1-1/2 x 1 cm that was full-thickness necrosis. These areas were sharply debrided. The wound was then irrigated with Betadine and saline solution. Once again the edges were undermined to prevent and deal with the rolling of the tissue. The incision was then closed with a combination of vertical and horizontal mattress sutures as well as an over and over baseball stitch. All sponge, needle, and instrument counts were correct at the conclusion of the case. The patient was taken to anesthesia care unit in good condition.
[2021-03-24] MEDS ORDERED: oxyCODONE 5 MG TABLET PO PRN (09:50)
[2021-03-24] MEDS ORDERED: LACTATED RINGERS 900 ML IV ONE (10:00)
[2021-03-24] MEDS ORDERED: oxyCODONE 5 MG TABLET ONE (10:47)
--- NOTE | 2021-03-24 10:49 | ANESTHESIA POST OP EVALUATION ---
Anesthesia Post Eval - Post Anesthesia Eval Vitals: Last Vital Signs Temp 36.2 C L 03/24/21 10:40 Pulse 75 03/24/21 10:40 Resp 13 03/24/21 10:40 BP 133/73 H 03/24/21 10:40 Pulse Ox 99 03/24/21 10:40 CV Function Including HR & BP: Stable Pain Control: Satisfactory Nausea & Vomiting: Negative Mental Status: Baseline Respiratory Status: Airway Patent Hydration Status: Satisfactory Anesthesia Complications: None
[2021-03-24 11:17] VITALS: BP 135/57
== END 2021-03-24 07:29 | disposition home or self-care (01) ==
LOC: SDS 07:28
PROVIDERS: ATTEND Surgery
DX: L76.82 Other postprocedural complications of skin and subcutaneous tissue (principal); I96 Gangrene, not elsewhere classified; Y83.8 Other surgical procedures as the cause of abnormal reaction of the patient, or of later complication, without mention of misadventure at the time of the procedure; E66.9 Obesity, unspecified; Z68.31 Body mass index [BMI] 31.0-31.9, adult; Z90.13 Acquired absence of bilateral breasts and nipples; Z90.710 Acquired absence of both cervix and uterus; Z90.722 Acquired absence of ovaries, bilateral
CPT/HCPCS: 11406; 13101; 13102; A9270; J1200; J3490; J7120

== ENCOUNTER 2021-06-23 17:34 | Outpatient (CLI) | payer OTHER ==
--- NOTE | 2021-06-24 12:45 | XRAY Report ---
PROCEDURE: Chest 2 View X-Ray INDICATIONS: SOB TECHNIQUE: 2 view(s) of the chest. COMPARISON: None. FINDINGS: Surgical changes and devices: Surgical clips in the right axilla.. Lungs and pleura: No pleural effusions or pneumothorax. Lungs are clear. Mediastinum: Mediastinal contours are normal. Heart size is normal. Bones and chest wall: No suspicious bony abnormalities. Soft tissues appear unremarkable. The thor acic spine has degenerative changes. IMPRESSION: No acute cardiopulmonary abnormality. Reviewed by: Calvin Baum on 06/24/2021 12:44 PM PDT Approved by: Calvin Baum on 06/24/2021 12:44 PM PDT Station ID: [id number]
== END 2021-06-23 17:35 | disposition home or self-care (01) ==
LOC: DI.N 17:34
PROVIDERS: ATTEND Physician Assistant Medical
DX: R06.02 Shortness of breath (principal)

== ENCOUNTER 2021-07-27 12:37 | Outpatient (CLI) | payer OTHER ==
[2021-07-27 17:33] LABS: ALBUMIN 4.4 g/dL (3.2-5.5); ALBUMIN/GLOBULIN RATIO 1.3 (1.0-2.2); ALKALINE PHOSPHATASE 50 IU/L (42-121); ALT ALANINE AMINOTRANSFERASE 26 IU/L (10-60); AST ASPARTATE AMINOTRANSFERASE 27 IU/L (10-42); BILIRUBIN,TOTAL 0.5 mg/dL (0.2-1.0); BUN - BLOOD UREA NITROGEN 22 mg/dL (6-20); CALCIUM 9.7 mg/dL (8.5-10.3); CARBON DIOXIDE - CO2 29 mmol/L (21-32); CHLORIDE 103 mmol/L (101-111); CHOL/HDL RATIO 3.4 (<4.4); CHOLESTEROL 168 mg/dL; CREATININE 0.9 mg/dL (0.4-1.0); GFR - MDRD 64 (>89); GLUCOSE 101 mg/dL (70-100); HDL CHOLESTEROL 50 mg/dL; LDL CHOLESTEROL,CALCULATED 94 mg/dL; LDL/HDL RATIO 1.9 (<4.4); POTASSIUM 4.4 mmol/L (3.5-5.0); SODIUM 139 mmol/L (135-145); TOTAL PROTEIN 7.7 g/dL (6.7-8.2); TRIGLYCERIDES 118 mg/dL; VLDL CHOLESTEROL 24 mg/dL
== END 2021-07-27 12:38 | disposition home or self-care (01) ==
LOC: LAB.N 12:37
PROVIDERS: ATTEND Nurse Practitioner Family
DX: E78.5 Hyperlipidemia, unspecified (principal)
CPT/HCPCS: 36415; 80053; 80061; 83721

== ENCOUNTER 2021-12-18 11:59 | Outpatient (CLI) | payer OTHER ==
[2021-12-18 18:34] LABS: BASOPHILS % (AUTO) 0.6 %; EOSINOPHILS # (AUTO) 0.1 10^3/uL (0.0-0.7); EOSINOPHILS % (AUTO) 2.1 %; HGB - HEMOGLOBIN 11.7 g/dL (12.0-16.0); LYMPHOCYTES # (AUTO) 1.8 10^3/uL (1.5-3.5); LYMPHOCYTES % (AUTO) 26.6 %; MEAN CORPUSCULAR HEMOGLOBIN 25.2 pg (27.0-31.0); MEAN CORPUSCULAR VOLUME 84.1 fL (81.0-99.0); MEAN PLATELET VOLUME 11.3 fL (7.9-10.8); MONOCYTES # (AUTO) 0.3 10^3/uL (0.0-1.0); MONOCYTES % (AUTO) 5.1 %; NEUTROPHILS # (AUTO) 4.4 10^3/uL (1.5-6.6); NEUTROPHILS % (AUTO) 65.3 %; PLT - PLATELET COUNT 297 10^3/uL (130-450); RED BLOOD COUNT 4.64 10^6/uL (4.20-5.40); RED CELL DISTRIBUTION WIDTH 14.3 % (12.0-15.0); WHITE BLOOD COUNT 6.7 x10^3/uL (4.8-10.8)
[2021-12-18 18:48] LABS: ALBUMIN 4.1 g/dL (3.2-5.5); ALBUMIN/GLOBULIN RATIO 1.1 (1.0-2.2); ALKALINE PHOSPHATASE 52 IU/L (42-121); ALT ALANINE AMINOTRANSFERASE 26 IU/L (10-60); AST ASPARTATE AMINOTRANSFERASE 27 IU/L (10-42); BILIRUBIN,TOTAL 0.5 mg/dL (0.2-1.0); BUN - BLOOD UREA NITROGEN 15 mg/dL (6-20); CALCIUM 9.6 mg/dL (8.5-10.3); CARBON DIOXIDE - CO2 26 mmol/L (21-32); CHLORIDE 102 mmol/L (101-111); CHOL/HDL RATIO 4.4 (<4.4); CHOLESTEROL 169 mg/dL; CREATININE 0.9 mg/dL (0.4-1.0); GFR - MDRD 64 (>89); GLUCOSE 100 mg/dL (70-100); HDL CHOLESTEROL 38 mg/dL; LDL CHOLESTEROL,CALCULATED 98 mg/dL; LDL/HDL RATIO 2.6 (<4.4); SODIUM 138 mmol/L (135-145); TRIGLYCERIDES 164 mg/dL; VLDL CHOLESTEROL 33 mg/dL
[2021-12-18 18:52] LABS: THYROID STIMULATING HORMONE 1.28 uIU/mL (0.34-5.60)
== END 2021-12-18 12:00 | disposition home or self-care (01) ==
LOC: LAB.N 11:59
PROVIDERS: ATTEND Physician Assistant Medical
DX: Z00.00 Encounter for general adult medical examination without abnormal findings (principal); E78.5 Hyperlipidemia, unspecified
CPT/HCPCS: 36415; 80053; 80061; 83721; 84443; 85025

== ENCOUNTER → 2022-01-10 | Outpatient (CLI) | payer OTHER | END | disposition short-term general hospital (02) | LOC: EMS 23:49 | DX: R06.02 Shortness of breath (principal); R19.7 Diarrhea, unspecified; R53.83 Other fatigue | CPT/HCPCS: A0425; A0427 ==

== ENCOUNTER 2022-08-15 18:48 | Outpatient (CLI) | payer OTHER | END 2022-08-15 23:59 | disposition short-term general hospital (02) | LOC: EMS 18:48 | DX: R58 Hemorrhage, not elsewhere classified (principal) | CPT/HCPCS: A0425; A0429 ==

== ENCOUNTER 2023-03-07 07:15 | Outpatient (CLI) | payer OTHER ==
--- NOTE | 2023-03-07 18:10 | XRAY Report ---
PROCEDURE: Wrist 3+V LT INDICATIONS: LEFT WRIST PAIN TECHNIQUE: 3 views of the wrist were acquired. COMPARISON: None. FINDINGS: Bones: No fractures or dislocations. No suspicious bony lesions. Soft tissues: No suspicious soft tissue calcifications or masses. IMPRESSION: No visualized acute fracture or dislocation. However, occult injury cannot be excluded. Recommend alina rt interval imaging follow-up in 7-10 days as clinically indicated for additional evaluation. Reviewed by: Tawana Peres MD on 03/07/2023 6:09 PM [facility] Approved by: Tawana Peres MD on 03/07/2023 6:09 PM [facility] Station ID: [id number]
== END 2023-03-07 07:30 | disposition home or self-care (01) ==
LOC: DI.N 07:15
PROVIDERS: ATTEND Physician Assistant
DX: M25.532 Pain in left wrist (principal)

== ENCOUNTER 2023-03-15 08:00 | Outpatient (CLI) | payer OTHER ==
--- NOTE | 2023-03-15 17:39 | XRAY Report ---
PROCEDURE: Wrist 4 View LT INDICATIONS: LEFT WRIST PAIN TECHNIQUE: 4 views of the wrist were acquired. COMPARISON: X-ray wrist 03/07/2023 FINDINGS: Bones: No fractures or dislocations. No suspicious bony lesions. Soft tissues: No suspicious soft tissue calcifications or masses. IMPRESSION: No visualized acute fracture or dislocation. However, occult injury cannot be excluded. Recommend alina rt interval imaging follow-up in 7-10 days as clinically indicated for additional evaluation. Reviewed by: Tawana Peres MD on 03/15/2023 5:38 PM PST Approved by: Tawana Peres MD on 03/15/2023 5:38 PM PST Station ID: [id number]
== END 2023-03-15 23:59 | disposition home or self-care (01) ==
LOC: DI.WOS 08:00
PROVIDERS: ATTEND Orthopaedic Surgery
DX: S62.025A Nondisplaced fracture of middle third of navicular [scaphoid] bone of left wrist, initial encounter for closed fracture (principal)

== ENCOUNTER 2023-04-14 12:41 | Outpatient (CLI) | payer OTHER ==
--- NOTE | 2023-04-15 13:08 | MRI Report ---
PROCEDURE: Wrist LT WO INDICATIONS: FX L WRIST TECHNIQUE: Noncontrast coronal T1 spin echo, proton density fast spin echo and T2 fast spin echo with fat satura tion; coronal 3-D gradient echo, axial T1 spin echo and T2 fast spin echo with fat saturation, sagitt al T1 spin echo through the wrist. COMPARISON: Left wrist radiographs 03/15/2023 and 03/07/2023 FINDINGS: Image quality: Excellent. Bones and cartilage: The carpal bones are normally aligned. No bone marrow contusions or fractures. No evidence for avascular necrosis. Moderate degenerative changes at the 1st carpometacarpal join t and triscaphe joint with subchondral cystic changes. Carpal ligaments: The scapholunate and lunotriquetral ligaments appear intact. On sagittal images, the pisohamate ligament appears intact. Triangular fibrocartilage complex: A small defect is seen in the central triangular fibrocartilage di sc, which may be degenerative. Tendons and soft tissues: The carpal tunnel structures appear normal, including the median nerve. T he ulnar nerve appears normal within Guyon's canal. Mild de Quervain tenosynovitis of the abductor po llicis longus and extensor pollicis brevis tendons in the 1st and 2nd compartment. Mild intrasubstanc e fluid is seen within the extensor pollicis brevis tendon that can indicate partial intrasubstance t earing. The remaining extensor tendon compartments demonstrate normal morphology, without pathologic tendon sheath fluid. No soft tissue ganglion cysts. IMPRESSION: 1.Suspected partial intrasubstance tearing of the extensor pollicis brevis tendon at the level of the radial styloid. Mild de Quervain tenosynovitis of the 1st extensor compartment tendons. 2.Small defect in the central triangular fibrocartilage disc may be degenerative. 3.Moderate 1st carpometacarpal and triscaphe osteoarthrosis. Reviewed by: Meliton Renner MD on 04/15/2023 1:07 PM PST Approved by: Meliton Renner MD on 04/15/2023 1:07 PM PST Station ID: [id number]
== END 2023-04-14 12:42 | disposition home or self-care (01) ==
LOC: DI 12:41
PROVIDERS: ATTEND Orthopaedic Surgery
DX: M18.12 Unilateral primary osteoarthritis of first carpometacarpal joint, left hand (principal); M19.032 Primary osteoarthritis, left wrist

== ENCOUNTER 2023-10-17 07:05 | Day surgery (SDC) | payer OTHER ==
[2023-10-17] MEDS: LACTATED RINGERS 1,000 ML IV ONE (07:15)
[2023-10-17] MEDS ORDERED: PROPOFOL 500 MG/50 ML 500 MG/50 ML VIAL ONE (08:07)
[2023-10-17] MEDS ORDERED: LIDOCAINE-MPF 2% 5 ML VIAL ONE (08:07)
--- NOTE | 2023-10-17 08:41 | ANESTHESIA ---
Pre-Anesthesia VS, & Labs - Diagnosis gi bleeding - Procedure colonoscopy Vital Signs: Temp Pulse Resp BP Pulse Ox O2 Flow Rate 36.0 C L 82 16 142/77 H 99 10/17/23 07:15 10/17/23 07:15 10/17/23 07:15 10/17/23 07:15 10/17/23 07:15 Height: 5 ft 6 in Weight (kg): 92.4 kg Body Mass Index: 32.8 BMI Classification: Obese - NPO Other - Is Patient ?: No Home Medications and Allergies Home Medications: Ambulatory Orders Calcium Carbonate [Calcium] 600 mg PO DAILY 10/13/23 Ferrous Sulfate [Slow Fe] 137 mg PO DAILY 10/13/23 Lactobacillus Combination No.4 [Probiotic] 1 each PO DAILY 10/13/23 Letrozole 2.5 mg PO DAILY 10/13/23 Atorvastatin Calcium [Lipitor] 10 mg ORAL DAILY 04/16/14 Nortriptyline [Pamelor] 50 mg ORAL DAILY 04/16/14 Omeprazole [Prilosec] 20 mg ORAL DAILY 04/16/14 Gabapentin [Neurontin] 600 mg PO BID 01/02/15 Vit,Calc76/Iron/Folic [Prenatabs Rx Tablet] 1 each PO DAILY 01/02/15 methocarbamoL [Robaxin-750] 750 mg PO Q6HR PRN 01/02/15 Cholecalciferol (Vitamin D3) [Vitamin D3] 5,000 unit PO DAILY 04/27/17 Meloxicam 15 mg PO DAILY 04/27/17 lisinopriL [Lisinopril] 20 mg PO DAILY 04/27/17 Buspirone HCl 2 tab PO BID 12/30/20 Famotidine [Pepcid] 1 tab PO DAILY 12/30/20 Calcium Carbonate [Calcium] 600 mg PO DAILY 10/13/23 Ferrous Sulfate [Slow Fe] 137 mg PO DAILY 10/13/23 Lactobacillus Combination No.4 [Probiotic] 1 each PO DAILY 10/13/23 Letrozole 2.5 mg PO DAILY 10/13/23 Allergies/Adverse Reactions: Allergies Allergy/AdvReac Type Severity Reaction Status Date / Time hydromorphone [From Dilaudid] Allergy Hallucinati Verified 10/13/23 11:44 ons latex Allergy Rash Verified 10/13/23 11:44 Anes History & Medical History - Anesthetic History Anesthesia Complications: reports: No previous complications - Medical History Cardiovascular: reports: Hypertension, High cholesterol Pulmonary: reports: None Gastrointestinal: reports: GERD, Ulcers, Colon polyps, Diverticulitis, Ulcerative colitis Urinary: reports: Other Neuro: reports: None Musculoskeletal: reports: Osteoarthritis, Osteopenia, Chronic back pain Endocrine/Autoimmune: reports: None Blood Disorders: reports: None Skin: reports: Psoriasis Smoking Status: Former smoker History of Cancer?: Yes - Surgical History General: reports: Appendectomy, Colonoscopy Gynecologic: reports: Hysterectomy, Mastectomy, Other Orthopedic: reports: Other Exam General: Alert, Oriented x3 Dental: WNL Mouth Opening: Greater than 4 Fingerbreadths Neck Mobility: Normal Mallampati classification: II Thyromental Distance: greater than 6 cm Respiratory: Lungs clear Cardiovascular: Regular rate Plan Anesthesia Type: Total IV Consent for Procedure(s) Verified and Reviewed: Yes Code Status: Attempt Resuscitation ASA classification: 2-Mild systemic disease Is this case an emergency?: No
[2023-10-17] MEDS: LACTATED RINGERS 400 ML IV ONE (09:21)
[2023-10-17 10:27] VITALS: BP 133/74; O2SAT 99
--- NOTE | 2023-10-17 15:02 | ANESTHESIA POST OP EVALUATION ---
Anesthesia Post Eval - Post Anesthesia Eval Vitals: Last Vital Signs Temp 36.0 C L 10/17/23 10:00 Pulse 77 10/17/23 10:00 Resp 18 10/17/23 10:00 BP 133/74 H 10/17/23 10:00 Pulse Ox 99 10/17/23 10:00 O2 Flow Rate CV Function Including HR & BP: Stable Pain Control: Satisfactory Nausea & Vomiting: Negative Mental Status: Baseline Respiratory Status: Airway Patent Hydration Status: Satisfactory Anesthesia Complications: None
== END 2023-10-17 07:06 | disposition home or self-care (01) ==
LOC: SDS 07:05
PROVIDERS: ATTEND Surgery
PROC: 0DBK8ZZ Excision of Ascending Colon, Via Natural or Artificial Opening Endoscopic (ICD-10-PCS; principal; 2023-10-17 08:15)
DX: K92.1 Melena (principal); D12.2 Benign neoplasm of ascending colon; K57.30 Diverticulosis of large intestine without perforation or abscess without bleeding; K64.1 Second degree hemorrhoids; E66.9 Obesity, unspecified; K58.9 Irritable bowel syndrome, unspecified; Z68.32 Body mass index [BMI] 32.0-32.9, adult; Z87.891 Personal history of nicotine dependence
CPT/HCPCS: 45380; J7120